=== PATIENT | female | born 1940 | race Caucasian/White ===

== ENCOUNTER → 2023-11-26 14:00 | Outpatient (REF) | payer MEDICARE, MEDICAID, SELFPAY ==
[2023-11-26 14:47] LABS: Free T4 1.41 ng/dl (0.78-2.19)
[2023-11-26 15:00] LABS: TSH 9.32 uIU/ml (0.47-4.68)
== END ==
LOC: OLABN 14:00
PROVIDERS: ATTENDING PHYSICIAN Internal Medicine Geriatric Medicine
DX: E03.9 Hypothyroidism, unspecified (principal)
CPT/HCPCS: 36415; 84439; 84443

== ENCOUNTER → 2024-02-17 12:04 | Outpatient (REF) | payer MEDICARE, MEDICAID, SELFPAY ==
[2024-02-17 12:25] LABS: Hematocrit 35.6 % (37.0-47.0); Hemoglobin 12.2 g/dL (12.0-16.0); Mean Corp Hgb Conc. 34.3 g/dL (33.0-37.0); Mean Corpuscular Hgb 32.1 pg (27.0-31.0); Mean Corpuscular Volume 93.7 fL (81.0-99.0); Mean Platelet Volume 11.4 fL (7.4-10.4); Platelet Count 239 10^3/uL (130-400); Red Cell Dist. Width 13.2 % (11.5-14.5); White Blood Cell Count 5.4 10^3/uL (4.8-10.8)
[2024-02-17 13:20] LABS: ALT (SGPT) 15 U/L (0-35); AST (SGOT) 22 U/L (14-36); Albumin 3.3 g/dl (3.5-5.0); Alkaline Phosphatase 108 U/L (38-126); Blood Urea Nitrogen 17 mg/dl (7-17); Carbon Dioxide 24 mmol/L (22-30); Chloride 106 mmol/L (98-107); Glucose 79 mg/dl (70-99); HDL Cholesterol 55 mg/dl; LDL Cholesterol, Calculated 61 mg/dl; Potassium 4.6 mmol/L (3.5-5.1); Sodium 137 mmol/L (135-145); Total Bilirubin 0.3 mg/dl (0.2-1.3); Total Cholesterol 131 mg/dl (50-199); Total Protein 5.8 g/dl (6.3-8.2); Triglyceride 78 mg/dl (10-149); Very Low Density Lipoprotein 15 mg/dl (0-30); eGFR > 60.00
[2024-02-17 13:31] LABS: Free T4 1.15 ng/dl (0.78-2.19); Vitamin D, 25-OH*** 58.4 ng/mL (30-80)
[2024-02-17 13:38] LABS: TSH 1.77 uIU/ml (0.47-4.68)
== END ==
LOC: OLABN 12:04
PROVIDERS: ATTENDING PHYSICIAN Internal Medicine Geriatric Medicine
DX: E55.9 Vitamin D deficiency, unspecified (principal); E03.9 Hypothyroidism, unspecified; E78.5 Hyperlipidemia, unspecified
CPT/HCPCS: 36415; 80053; 80061; 82306; 84439; 84443; 85027

== ENCOUNTER → 2024-07-22 12:31 | Outpatient (REF) | payer MEDICARE, MEDICAID, SELFPAY ==
[2024-07-22 12:50] LABS: % Basophils 0.8 % (0-2); % Eosinophils 5.2 % (0-6); % Immature Granulocytes 0.4 % (0-0.5); % Lymphocytes 30.5 % (20.5-51.1); % Monocytes 11.3 % (1.7-9.3); % Neutrophils 51.8 % (42.2-75.2); Absolute Eosinophils 0.3 10^3/uL (0-0.7); Absolute Lymphocytes 1.5 10^3/uL (1.2-3.4); Absolute Monocytes 0.6 10^3/uL (0.1-0.6); Absolute Neutrophils 2.5 10^3/uL (1.4-6.5); Hematocrit 35.9 % (37.0-47.0); Hemoglobin 12.5 g/dL (12.0-16.0); Mean Corp Hgb Conc. 34.8 g/dL (33.0-37.0); Mean Corpuscular Hgb 32.1 pg (27.0-31.0); Mean Corpuscular Volume 92.3 fL (81.0-99.0); Mean Platelet Volume 11.2 fL (7.4-10.4); Nucleated Red Blood Cells % 0 %; Platelet Count 300 10^3/uL (130-400); Red Blood Cell Count 3.89 10^6/uL (4.20-5.40); White Blood Cell Count 4.9 10^3/uL (4.8-10.8)
== END ==
LOC: OLABN 12:31
PROVIDERS: ATTENDING PHYSICIAN Internal Medicine Geriatric Medicine
DX: R05.9 Cough, unspecified (principal)
CPT/HCPCS: 36415; 85025

== ENCOUNTER → 2024-08-17 09:20 | Outpatient (REF) | payer MEDICARE, MEDICAID, SELFPAY ==
[2024-08-17 12:30] LABS: ALT (SGPT) 17 U/L (0-35); AST (SGOT) 22 U/L (14-36); Albumin 2.9 g/dl (3.5-5.0); Alkaline Phosphatase 107 U/L (38-126); Blood Urea Nitrogen 22 mg/dl (7-17); Calcium 8.8 mg/dl (8.4-10.2); Carbon Dioxide 23 mmol/L (22-30); Chloride 106 mmol/L (98-107); Glucose 76 mg/dl (70-99); HDL Cholesterol 56 mg/dl; LDL Cholesterol, Calculated 60 mg/dl; Potassium 4.6 mmol/L (3.5-5.1); Sodium 139 mmol/L (135-145); Total Bilirubin 0.2 mg/dl (0.2-1.3); Total Cholesterol 133 mg/dl (50-199); Total Protein 5.3 g/dl (6.3-8.2); Triglyceride 86 mg/dl (10-149); Very Low Density Lipoprotein 17 mg/dl (0-30); eGFR > 60.00
[2024-08-17 12:31] LABS: Hematocrit 31.7 % (37.0-47.0); Hemoglobin 10.7 g/dL (12.0-16.0); Mean Corp Hgb Conc. 33.8 g/dL (33.0-37.0); Mean Corpuscular Hgb 31.8 pg (27.0-31.0); Mean Corpuscular Volume 94.1 fL (81.0-99.0); Mean Platelet Volume 11.1 fL (7.4-10.4); Platelet Count 258 10^3/uL (130-400); Red Blood Cell Count 3.37 10^6/uL (4.20-5.40); Red Cell Dist. Width 13.2 % (11.5-14.5)
[2024-08-17 12:43] LABS: Free T4 1.61 ng/dl (0.78-2.19)
[2024-08-17 12:58] LABS: TSH 0.56 uIU/ml (0.47-4.68)
== END ==
LOC: OLABN 09:20
PROVIDERS: ATTENDING PHYSICIAN Internal Medicine Geriatric Medicine
DX: E03.9 Hypothyroidism, unspecified (principal); E78.5 Hyperlipidemia, unspecified
CPT/HCPCS: 36415; 80053; 80061; 84439; 84443; 85027

== ENCOUNTER → 2024-11-16 10:55 | Outpatient (REF) | payer MEDICARE, MEDICAID, SELFPAY ==
[2024-11-17 02:53] LABS: Free T4 0.97 ng/dl (0.78-2.19)
[2024-11-17 03:07] LABS: TSH 7.91 uIU/ml (0.47-4.68)
== END ==
LOC: OLABN 10:55
PROVIDERS: ATTENDING PHYSICIAN Internal Medicine Geriatric Medicine
DX: E03.9 Hypothyroidism, unspecified (principal)
CPT/HCPCS: 36415; 84439; 84443

== ENCOUNTER → 2024-11-23 09:31 | Outpatient (REF) | payer MEDICARE, MEDICAID, SELFPAY ==
[2024-11-23 10:18] LABS: % Basophils 0.3 % (0-2); % Eosinophils 0.1 % (0-6); % Immature Granulocytes 1.1 % (0-0.5); % Monocytes 4.3 % (1.7-9.3); % Neutrophils 89.2 % (42.2-75.2); Absolute Immature Granulocytes 0.2 10^3/uL (0-0.05); Absolute Lymphocytes 0.7 10^3/uL (1.2-3.4); Absolute Monocytes 0.6 10^3/uL (0.1-0.6); Absolute Neutrophils 12.8 10^3/uL (1.4-6.5); Hematocrit 29.3 % (37.0-47.0); Hemoglobin 9.5 g/dL (12.0-16.0); Mean Corp Hgb Conc. 32.4 g/dL (33.0-37.0); Mean Corpuscular Hgb 28.2 pg (27.0-31.0); Mean Corpuscular Volume 86.9 fL (81.0-99.0); Nucleated Red Blood Cells % 0.1 %; Platelet Count 312 10^3/uL (130-400); Red Blood Cell Count 3.37 10^6/uL (4.20-5.40); Red Cell Dist. Width 15.8 % (11.5-14.5); White Blood Cell Count 14.3 10^3/uL (4.8-10.8)
[2024-11-23 10:44] LABS: ALT (SGPT) 34 U/L (0-35); AST (SGOT) 51 U/L (14-36); Albumin 2.8 g/dl (3.5-5.0); Alkaline Phosphatase 175 U/L (38-126); Blood Urea Nitrogen 51 mg/dl (7-17); Calcium 8.5 mg/dl (8.4-10.2); Carbon Dioxide 25 mmol/L (22-30); Chloride 109 mmol/L (98-107); Glucose 87 mg/dl (70-99); Potassium 3.5 mmol/L (3.5-5.1); Sodium 144 mmol/L (135-145); Total Bilirubin 0.6 mg/dl (0.2-1.3); Total Protein 5.7 g/dl (6.3-8.2); eGFR > 60.00
== END ==
LOC: OLABN 09:31
PROVIDERS: ATTENDING PHYSICIAN Internal Medicine Geriatric Medicine
DX: R09.89 Other specified symptoms and signs involving the circulatory and respiratory systems (principal)
CPT/HCPCS: 36415; 80053; 85025

== ENCOUNTER 2024-11-23 20:39 | Emergency (ER) | payer MEDICARE, MEDICAID, SELFPAY ==
--- NOTE | 2024-11-23 20:54 | ED.GENMED ---
History of Present Illness
General
Chief Complaint: Breathing Problem
Source: family (Niece who is power of insurance attorney) and ambulance crew
Time Seen by Provider: 11/23/24 20:44
History of Present Illness
History of Present Illness:
84-year-old female brought to the emergency room from [facility] in respiratory distress. Patient was found on evening rounds to be in respiratory distress. Patient evidently was having a cough and some respiratory issues earlier prompting a
chest x-ray and a prescription for doxycycline. Reportedly x-ray showed chronic changes but nothing acute. There was some concern that she may have aspirated while vomiting. Patient's niece is here with her and is the power of insurance attorney. Patient
has no children. He states the patient has made it clear that she would not want to be on a ventilator or have her life extended artificially. He is further states the patient has severe dementia and has been declining rapidly.
Past History
Past History
ED Past Medical History: HTN
ED Past Surgical History: Cardiac (Valve replacement surgery)
Social History
Tobacco: Non-smoker
Drug: None
Phy Exam
Physical Exam
Physical Exam:
General: Nonresponsive, appears acutely ill and mottled, respiratory stress. On BiPAP
Vitals: Hypoxic
Head: Atraumatic
Eyes: Pupils equal, EOMI
Throat: Airway intact, no exudates
Neck: Trachea midline
Lungs: Rhonchi bilaterally, accessory muscle use
Heart: Regular rate, no murmurs
Abd: Soft, Nontender, No pulsatile mass
Neuro: grossly non-focal
Skin: Cool, mottled
Extremities: pulses equal b/l, no edema
Scores
Heart Failure Risk
Heart Failure Risk Score: Not Applicable
Course
Orders/Labs/Results
Orders:
Orders
11/23/24 20:51
Electrocardiogram (*1) Urgent
Reason for Study: Shortness of Breath
EKG- Treatment ONCE
11/23/24 20:53
Morphine Sulfate 4 mg IV NOW STA
11/23/24 20:54
Complete Blood Count/With Diff Urgent
Comprehensive Metabolic Panel Urgent
NT-proBNP Urgent
Troponin I Urgent
Venous Blood Gas Urgent
%Oxygen/Room Air: 83
Abnormal Lab Results
11/23/24
20:54
WBC 16.6 H 10^3/uL
(4.8-10.8)
RBC 3.82 L 10^6/uL
(4.20-5.40)
Hgb 10.6 L g/dL
(12.0-16.0)
Hct 34.5 L %
(37.0-47.0)
MCHC 30.7 L g/dL
(33.0-37.0)
RDW 16.1 H %
(11.5-14.5)
Abs Immat Gran (auto) 0.3 H 10^3/uL
(0-0.05)
Absolute Neuts (auto) 15.2 H 10^3/uL
(1.4-6.5)
Absolute Lymphs (auto) 0.6 L 10^3/uL
(1.2-3.4)
Immature Gran % 1.9 H %
(0-0.5)
Neutrophils % 91.7 H %
(42.2-75.2)
Lymphocytes % 3.5 L %
(20.5-51.1)
VBG pH 7.24 L
(7.32-7.43)
VBG pCO2 54 H mmHg
(35-48)
Potassium 3.1 L mmol/L
(3.5-5.1)
BUN 56 H mg/dl
(7-17)
Creatinine 1.4 H mg/dL
(0.6-1.0)
Glucose 289 H mg/dl
(70-99)
AST 117 H U/L
(14-36)
ALT 71 H U/L
(0-35)
Alkaline Phosphatase 258 H U/L
(38-126)
Troponin I 1.750 H* ng/ml
Total Protein 6.1 L g/dl
(6.3-8.2)
Albumin 3.1 L g/dl
(3.5-5.0)
11/23/24 20:54
11/23/24 20:54
Vital Signs
Initial and Last Documented VS:
Initial Vital Signs
Temp Pulse Resp Pulse Ox
97 F 89 32 83
11/23/24 20:45 11/23/24 20:45 11/23/24 20:45 11/23/24 20:45
Last Documented Vital Signs
Temp Pulse Resp Pulse Ox
97 F 101 33 79
11/23/24 20:45 11/23/24 21:45 11/23/24 21:45 11/23/24 21:45
MDM/Problems Addressed
Differential Diagnosis Includes:
Pneumonia, COPD exacerbation, aspiration
MDM/Problems Addressed:
Patient presents in respiratory distress. Paramedics placed her on BiPAP. Patient's niece is here with her and states the patient would not want to be intubated or have CPR. She would not like to review move current treatment but would not
advance to the ventilator etc. She agrees with my plan to administer a dose of morphine to help with respiratory distress.
EKG changes noted on monitor and EKG shows anterior wall [place]. Discussed typical treatment would be having the patient go to the [facility] to identify the blockage and hopefully stented. Given her respiratory status this would require intubation.
Patient's niece reiterates that the patient would not want to be on a ventilator and would not want any advanced care given her declining status of health and dementia. Patient made comfort measures. Patient at [id number]. was reported to
the medical device sales, rent and housing investigator Kamala Angel who releases the body. I filled out the pronouncement portion of the certificate. I sent a message to Dr. Reeves notifying him of his patient's and the need to complete the rest of the
certificate.
Chronic conditions affecting care: HTN
*Pulse Oximetry
Patient hypoxic: yes
*EKG
Interpreted by ED Provider?: Yes
Heart Rate: 101
Rate: tachycardiac
Rhythm: sinus
Ischemia: ST elevation (Leads II, III, aVF, V4, V5, V6 with reciprocal changes consistent with an inferior lateral [place])
*Customer Service Attendant Interpretation
Rate: bradycardiac and tachycardiac
Interpretation: abnormal
Rhythm: sinus tachycardia
*Critical Care Note
Total Time (30-74mins, 75-104mins- exclusive of procedures): 40 min
comment:
Critical care statement: A total of 40 minutes of critical care time was provided for this patient. This includes management of unstable vital signs, evaluation of the patient at bedside, reviewing the patient's pertinent medical records, discussion
with consultants, review of old EKGs and review of pertinent medical records. This time with separate from time utilized to perform the aforementioned documented procedures
ED Attending Note
-
Portions of this chart may have been created with voice recognition software.� Occasional wrong word or��sound alike� substitutions may have occurred due to the inherent limitations of voice recognition software.
Discharge Plan
Departure
Patient Disposition:
Date of Disposition: 11/23/24
Time of Disposition: 23:18
Discharge Problem:
Acute myocardial infarction
Prescriptions:
No Action
clopidogrel 75 MG tablet
75 mg PO DAILY
levothyroxine 100 MCG tablet
100 mcg PO MOTUTHFRSA
Referrals:
Marcus Reeves MD [Family Provider] -
Interventions
Interventions:
*Risk Screen - Suicide Last Done: 11/23/24 20:45
*General Assessment Last Done: 11/23/24 20:45
*Neglect/Abuse Screening Last Done: 11/23/24 20:45
ED- Cardiac Assessment Last Done: 11/23/24 21:06
ED- Pulmonary Assessment Last Done: 11/23/24 21:06
Discharge Date and Time
Print Language: YORUBA
[2024-11-23] MEDS: MORPHINE SULFATE 4 MG IV (20:56)
[2024-11-23 21:05] LABS: Hematocrit 34.5 % (37.0-47.0); Hemoglobin 10.6 g/dL (12.0-16.0); Mean Corp Hgb Conc. 30.7 g/dL (33.0-37.0); Mean Corpuscular Hgb 27.7 pg (27.0-31.0); Mean Corpuscular Volume 90.3 fL (81.0-99.0); Platelet Count 345 10^3/uL (130-400); Red Blood Cell Count 3.82 10^6/uL (4.20-5.40); Red Cell Dist. Width 16.1 % (11.5-14.5); White Blood Cell Count 16.6 10^3/uL (4.8-10.8)
[2024-11-23 21:07] LABS: Venous Blood Gas B.E. -4.6 mmol/L (-4 to +4); Venous Blood Gas HCO3 23.1 mmol/L (22-27); Venous Blood Gas O2 Sat % 60.3 %; Venous Blood Gas pCO2 54 mmHg (35-48); Venous Blood Gas pH 7.24 (7.32-7.43); Venous Blood Gas pO2 44 mmHg (30-50)
[2024-11-23 21:21] LABS: % Basophils 0.3 % (0-2); % Immature Granulocytes 1.9 % (0-0.5); % Lymphocytes 3.5 % (20.5-51.1); % Monocytes 2.6 % (1.7-9.3); % Neutrophils 91.7 % (42.2-75.2); Absolute Basophils 0.1 10^3/uL (0-0.2); Absolute Immature Granulocytes 0.3 10^3/uL (0-0.05); Absolute Lymphocytes 0.6 10^3/uL (1.2-3.4); Absolute Monocytes 0.4 10^3/uL (0.1-0.6); Absolute Neutrophils 15.2 10^3/uL (1.4-6.5); Normal RBC Morphology No; Nucleated Red Blood Cells % 1.2 %
[2024-11-23 21:22] LABS: Anisocytosis 1+; Hypochromasia 1+; Target Cells Slight
[2024-11-23 21:23] LABS: ALT (SGPT) 71 U/L (0-35); AST (SGOT) 117 U/L (14-36); Albumin 3.1 g/dl (3.5-5.0); Alkaline Phosphatase 258 U/L (38-126); Blood Urea Nitrogen 56 mg/dl (7-17); Calcium 9.2 mg/dl (8.4-10.2); Carbon Dioxide 23 mmol/L (22-30); Chloride 107 mmol/L (98-107); Glucose 289 mg/dl (70-99); Ovalocytes Occasional; Potassium 3.1 mmol/L (3.5-5.1); Sodium 145 mmol/L (135-145); Total Bilirubin 0.5 mg/dl (0.2-1.3); Total Protein 6.1 g/dl (6.3-8.2); eGFR 36.64
[2024-11-23 21:26] LABS: NT-proBNP 14500 pg/ml
[2024-11-23 21:34] VITALS: PULSE 104; PULSE 2
== END 2024-11-23 21:53 | disposition expired ==
LOC: EMR 20:39
PROVIDERS: EMERGENCY PHYSICIAN Emergency Medicine; FAMILY PHYSICIAN Internal Medicine Geriatric Medicine
DX: I21.9 Acute myocardial infarction, unspecified (principal); I10 Essential (primary) hypertension
CPT/HCPCS: 99291; 96374; 80053; 82805; 83880; 84484; 85025; 93005; 94660